=== PATIENT | female | born 1995 | race American Indian/Alaskan Native ===

== ENCOUNTER 2020-10-01 13:23 | Emergency (ER) | payer SELFPAY ==
[2020-10-01 13:58] LABS: Bilirubin,Urine NEG (Negative); Blood,Urine NEG (Negative); Color,Urine Straw (Yellow); HCG Qualitative,Urine Negative (Negative); Protein,Urine <15 mg/dL mg/dL (Negative); RBC,Urine < 1.0 /HPF (0.0-6.0); Urobilinogen,Urine < 2.0 mg/dL (<2.0); WBC,Urine < 1.0 /HPF (0.0-6.0)
--- NOTE | 2020-10-01 14:06 | Emergency Department Report ---
ED Abdominal Pain HPI - General Chief Complaint: Abdominal Pain Stated Complaint: ABD PAIN Time Seen by Provider: 10/01/20 13:28 Source: patient Mode of arrival: Ambulatory Limitations: No Limitations - History of Present Illness Initial Comments: Patient is a 24-year-old female presents emergency room complaints of suprapubic abdominal discomfort that began 2 days ago. She describes the pain as intermittent cramping sensation. She states that she does have some urinary frequency. She states that occasionally she does have dyspareunia. She denies any dysuria, urinary urgency, dark urine or odor to the urine, vaginal discharge, itching, burning, vaginal bleeding, rectal pain, back pain, fever, nausea, vomiting, diarrhea. She states that she is having normal bowel movements. She states that she is sexually active with one partner. She denies any concerns for STDs. She states that she last saw a FITNESS TECHNICIAN in 2019 and had a normal Pap smear at that time, she states that she has never had an abnormal Pap smear before. No past medical history. No allergies medications. - Related Data Previous Rx's Medication Instructions Recorded Last Taken Type Famotidine [Pepcid] 20 mg PO BID #10 tablet 02/10/16 Unknown Rx diphenhydrAMINE [Benadryl CAP] 25 mg PO Q6HR PRN #25 capsule 02/10/16 Unknown Rx methylPREDNISolone [Medrol] 4 mg PO DAILY #1 tab.ds.pk 02/10/16 Unknown Rx Ketorolac [Toradol] 10 mg PO Q6H PRN #7 tablet 10/01/20 Unknown Rx amLODIPine 5 mg PO DAILY #30 tab 10/01/20 Unknown Rx traMADoL [Ultram 50 MG tab] 50 mg PO Q6HR PRN #7 tablet 10/01/20 Unknown Rx Allergies Allergy/AdvReac Type Severity Reaction Status Date / Time No Known Allergies Allergy Verified 02/10/16 00:58 ED Review of Systems ROS: Stated complaint: ABD PAIN Other details as noted in HPI Comment: All other systems reviewed and negative ED Past Medical Hx - Past Medical History Previous Medical History?: No - Surgical History Past Surgical History?: No - Social History Smoking Status: Never Smoker Substance Use Type: Marijuana - Medications Home Medications: Home Medications Medication Instructions Recorded Confirmed Last Taken Type Famotidine [Pepcid] 20 mg PO BID #10 tablet 02/10/16 Unknown Rx diphenhydrAMINE [Benadryl CAP] 25 mg PO Q6HR PRN #25 capsule 02/10/16 Unknown Rx methylPREDNISolone [Medrol] 4 mg PO DAILY #1 tab.ds.pk 02/10/16 Unknown Rx Ketorolac [Toradol] 10 mg PO Q6H PRN #7 tablet 10/01/20 Unknown Rx amLODIPine 5 mg PO DAILY #30 tab 10/01/20 Unknown Rx traMADoL [Ultram 50 MG tab] 50 mg PO Q6HR PRN #7 tablet 10/01/20 Unknown Rx ED Physical Exam - General Limitations: No Limitations General appearance: alert, in no apparent distress - Head Head exam: Present: atraumatic, normocephalic - Eye Eye exam: Present: normal appearance - ENT ENT exam: Present: mucous membranes moist - Respiratory Respiratory exam: Present: normal lung sounds bilaterally. Absent: respiratory distress, wheezes, rales, rhonchi, stridor, chest wall tenderness, accessory muscle use, decreased breath sounds, prolonged expiratory - Cardiovascular Cardiovascular Exam: Present: regular rate, normal rhythm, normal heart sounds. Absent: systolic murmur, diastolic murmur, rubs, gallop - GI/Abdominal GI/Abdominal exam: Present: soft, normal bowel sounds. Absent: distended, tenderness, guarding, rebound, rigid - Speculum exam: Present: other (pt deferred) - Neurological Exam Neurological exam: Present: alert, oriented X3 - Psychiatric Psychiatric exam: Present: normal affect, normal mood - Skin Skin exam: Present: warm, dry, intact ED Course Vital Signs 10/01/20 10/01/20 13:25 18:50 Temperature 98.6 F Pulse Rate 100 H 83 Respiratory 18 18 Rate Blood Pressure 180/112 Blood Pressure 173/120 [Right] O2 Sat by Pulse 100 100 Oximetry ED Medical Decision Making - Lab Data Lab Results 10/01/20 Range/Units Unknown Urine Color Straw (Yellow) Urine Turbidity Clear (Clear) Urine pH 7.0 (5.0-7.0) Ur Specific [place] 1.005 (1.003-1.030) Urine Protein <15 mg/dl (Negative) mg/dL Urine Glucose (UA) Neg (Negative) mg/dL Urine Ketones Neg (Negative) mg/dL Urine Blood Neg (Negative) Urine Nitrite Neg (Negative) Urine Bilirubin Neg (Negative) Urine Urobilinogen < 2.0 (<2.0) mg/dL Ur Leukocyte Esterase Neg (Negative) Urine WBC (Auto) < 1.0 (0.0-6.0) /HPF Urine RBC (Auto) < 1.0 (0.0-6.0) /HPF U Epithel Cells (Auto) 2.0 (0-13.0) /HPF Urine HCG, Qual Negative (Negative) - Radiology Data Radiology results: report reviewed Ordering Physician: KASH VILLAFUERTE Date of Service: 10/01/20 Procedure(s): US transvaginal Accession Number(s): [id number] cc: KASH VILLAFUERTE US TRANSVAGINAL US PELVIC COMPLETE INDICATION / CLINICAL INFORMATION: lower abd pain. COMPARISON: None available. FINDINGS: Transabdominal and transvaginal imaging was performed. Uterus measures 12.2 x 7.1 x 8.2 cm. The endometrial echo complex measures 7 mm. Left of midline within the uterus there is a heterogeneously hyperechoic ill-defined area which measures 7.3 cm. Within the myometrium right of midline there is a 1.3 cm hypoechoic focus. Flow is seen to the right ovary. There is a 2.6 cm heterogeneous right ovarian lesion. Left ovary is unremarkable. I do not see color interrogation images of the left ovary. IMPRESSION: 1. Uterus is enlarged, measurements as above. Complex 7.3 cm hyperechoic focus is most likely a fibroid but is nonspecific. Smaller hypoechoic focus right of midline may be a second uterine fibroid. 2. 2.6 and or complex right ovarian lesion. This could be a hemorrhagic cyst but is nonspecific. Sonographic follow-up is recommended. 3. Left ovary appears unremarkable. However, I do not have color interrogation images of the left ovary. Signer Name: Gabe Young MD Signed: 10/01/2020 6:26 PM Workstation Name: [id number] Transcribed By: AMILCAR Dictated By: Gabe Young MD Electronically Authenticated By: Gabe Young MD Signed Date/Time: 10/01/201825 DD/ 21 TD/TT: - Medical Decision Making Patient is a 24-year-old female presents emergency room complaints of suprapubic abdominal discomfort that began 2 days ago. She describes the pain as intermittent cramping sensation. She states that she does have some urinary frequency. She states that occasionally she does have dyspareunia. She denies any dysuria, urinary urgency, dark urine or odor to the urine, vaginal discharge, itching, burning, vaginal bleeding, rectal pain, back pain, fever, nausea, vomiting, diarrhea. She states that she is having normal bowel movements. She states that she is sexually active with one partner. She denies any concerns for STDs. She states that she last saw a FITNESS TECHNICIAN in 2019 and had a normal Pap smear at that time, she states that she has never had an abnormal Pap smear before. No past medical history. No allergies medications. Initial vitals with elevated heart rate and blood, heart rate improved, blood pressure remains elevated. The up-to-date medical literature does not recommend emergently lowering asymptomatic blood pressure. Patient started on low-dose amlodipine and discussed lifestyle modifications and the importance of primary care follow-up with patient, she verbalized understanding. UA is within normal limits. Urine is negative. Pelvic ultrasound: 1. Uterus is enlarged, measurements as above. Complex 7.3 cm hyperechoic focus is most likely a fibroid but is nonspecific. Smaller hypoechoic focus right of midline may be a second uterine fibroid. 2. 2.6 and or complex right ovarian lesion. This could be a hemorrhagic cyst but is nonspecific. Sonographic follow-up is recommended. 3. Left ovary appears unremarkable. However, I do not have color interrogation images of the left ovary. Discussed all results with patient and answered questions and discussed the importance of BALLISTIC TECHNICIAN follow-up. Patient given prescription for Toradol and tramadol. Advised patient Please take medication as prescribed. Do not drive or operate machinery while taking severe pain medication. Follow-up with a BALLISTIC TECHNICIAN. Follow-up with your primary care doctor. Return to emergency room for any new or worsening symptoms. please follow-up with your primary care doctor regarding elevation in your blood pressure during today's visit. Increase your water intake. Eat a low- sodium/low salt diet. Incorporate 30-60 minutes of daily exercise. Keep a blood pressure log and watch how your blood pressure fluctuates and take this with a primary care doctor. - Differential Diagnosis Fibroids, ovarian cyst, endometriosis, adenomyosis, UTI Critical care attestation.: If time is entered above; I have spent that time in minutes in the direct care of this critically ill patient, excluding procedure time. ED Disposition Clinical Impression: Suprapubic abdominal pain, Elevated blood pressure reading Ovarian cyst Qualifiers: Laterality: right Qualified Code(s): N83.201 - Unspecified ovarian cyst, right side Uterine fibroid Qualifiers: Uterine leiomyoma location: unspecified location Qualified Code(s): D25.9 - Leiomyoma of uterus, unspecified Disposition: DC- TO HOME OR SELFCARE Is pt being admited?: No Does the pt Need Aspirin: No Condition: Stable Instructions: Uterine Fibroids, [id number], Ovarian Cyst, [id number], Managing Your Hypertension, Abdominal Pain (ED) Additional Instructions: Please take medication as prescribed. Do not drive or operate machinery while taking severe pain medication. Follow-up with a BALLISTIC TECHNICIAN. Follow-up with your primary care doctor. Return to emergency room for any new or worsening sym ptoms. please follow-up with your primary care doctor regarding elevation in your blood pressure during today's visit. Increase your water intake. Eat a low- sodium/low salt diet. Incorporate 30-60 minutes of daily exercise. Keep a blood pressure log and watch how your blood pressure fluctuates and take this with a primary care doctor. Prescriptions: amLODIPine 5 mg PO DAILY #30 tab Ketorolac [Toradol] 10 mg PO Q6H PRN #7 tablet PRN Reason: Pain, Moderate (4-6) traMADoL [Ultram 50 MG tab] 50 mg PO Q6HR PRN #7 tablet PRN Reason: Pain , Severe (7-10) Referrals: [facility] [Other] - 2-3 Days your, physician office nurse [Other] - 2-3 Days Time of Disposition: 18:41 Print Language: SPANISH
--- NOTE | 2020-10-01 18:30 | Ultrasound Report ---
US TRANSVAGINAL US PELVIC COMPLETE INDICATION / CLINICAL INFORMATION: lower abd pain. COMPARISON: None available. FINDINGS: Transabdominal and transvaginal imaging was performed. Uterus measures 12.2 x 7.1 x 8.2 cm. The endometrial echo complex measures 7 mm. Left of midline with in the uterus there is a heterogeneously hyperechoic ill-defined area which measures 7.3 cm. Within t he myometrium right of midline there is a 1.3 cm hypoechoic focus. Flow is seen to the right ovary. There is a 2.6 cm heterogeneous right ovarian lesion. Left ovary is unremarkable. I do not see color interrogation images of the left ovary. IMPRESSION: 1. Uterus is enlarged, measurements as above. Complex 7.3 cm hyperechoic focus is most likely a fibro id but is nonspecific. Smaller hypoechoic focus right of midline may be a second uterine fibroid. 2. 2.6 and or complex right ovarian lesion. This could be a hemorrhagic cyst but is nonspecific. Sono graphic follow-up is recommended. 3. Left ovary appears unremarkable. However, I do not have color interrogation images of the left ova ry. Signer Name: Gabe Young MD Signed: 10/01/2020 6:26 PM Workstation Name: [id number]
[2020-10-01] MEDS ORDERED: IBUPROFEN 600 MG TAB PO ONE (18:40)
[2020-10-01] MEDS ORDERED: traMADol 50 MG TAB PO ONE (18:40)
[2020-10-01 18:52] VITALS: BP 173/120
== END 2020-10-01 18:55 | disposition home or self-care (01) ==
LOC: ED 13:23
DX: D25.9 Leiomyoma of uterus, unspecified (principal); N83.201 Unspecified ovarian cyst, right side; R03.0 Elevated blood-pressure reading, without diagnosis of hypertension; R10.2 Pelvic and perineal pain; F12.90 Cannabis use, unspecified, uncomplicated; Z79.899 Other long term (current) drug therapy
CPT/HCPCS: 76830; 76856; 81001; 81025